=== PATIENT | male | born 1960 | race Caucasian/White ===

== ENCOUNTER 2019-03-18 15:47 | Inpatient (IN) | payer MEDICARE, MEDICAID ==
[~2019-03-18] VITALS: Ht 177.8 cm; Wt 103.6 kg
--- NOTE | ~2019-03-18 | CON ---
[address] [address] CONSULTATION Name: MARY GREEN Room: [address] IN M.R.#: [id number] Admission: 03/18/19 Attend Phys: Escobar Tucker MD Discharge: Date of : 60 Report #: [id number] THIS REPORT FOR: //name// CC: [facility] physician/PCP Escobar Tucker DATE OF SERVICE: 03/20/2019 LOCATION: [facility]. CHIEF COMPLAINT: Diabetic foot ulceration of the dorsal aspect of the left foot of unknown etiology. HISTORY OF PRESENT ILLNESS: The patient developed a wound several weeks ago that is progressively worsened with increasing inflammation, edema, drainage and pain. He thinks it may be a spider bite, as he has seen spiders near him in his home. He has type 2 diabetes mellitus with some degree of peripheral neuropathy and arterial insufficiency. He is on parenteral vancomycin and ceftriaxone with good tolerance. Blood cultures are negative x 2, foot culture growing gram-positive cocci. His MRI was negative for abscess or osteomyelitis, as were his foot x-rays. His arterial Doppler showed a right mid femoral stenosis of roughly 75% and a left mid femoral stenosis of roughly 50%. Drug screen was positive for methamphetamine and marijuana. He relates decreased pain to the foot, he has remained afebrile with good appetite. LABORATORY DATA: WBC 8.6, hemoglobin is 15.5, hematocrit is 46.6, platelets 156,000. BUN 20, creatinine 0.8, glucose 277, albumin 3.2. PHYSICAL EXAMINATION: There is a well-circumscribed annular ulceration of the left dorsal foot that measures 3.5 x 2.0 x 0.5 cm. The wound base has yellow fibrotic tissue and slough with no granulation. There is no exposed bone or tendon. There is no undermining or tunneling. There is no fluctuance or crepitation. There is localized periwound inflammation with cellulitis extending to the ankle and lower leg, which has been resolving since hospital admission. He has dopplerable dorsalis pedis and posterior tibial pulses bilaterally. No other open lesions noted. IMPRESSION: Diabetic foot ulceration to left dorsal foot with deep tissue infection. PLAN: Excisional ulcer debridement was performed with scissors and forceps to excise fibronecrotic subcutaneous tissue. Scant bleeding was stopped with pressure. The wound was cleansed and packed with Aquacel Ag and dressed with a Mepilex bordered foam. The patient does not require surgical debridement in the operating room at this point. He can be managed with topical wound care, offloading, antibiotics and glycemic control. [place]ascular [place] [address] CONSULTATION Name: MARY GREEN Room: [address] [place] .R.#: [id number] Admission: 03/18/19 Attend Phys: Escobar Tucker MD Discharge: Date of : 60 Report #: [id number] with him regarding his stenosis. I will follow up with him next week at [facility]. By: [id number] Swanson DPM /tomas
[2019-03-18 15:52] VITALS: BP 91/75
[2019-03-18 16:23] LABS: ABSOLUTE BASOPHILS 0.1 thou/uL (0.0-0.2); ABSOLUTE EOSINOPHILS 0.5 thou/uL (0.0-0.7); ABSOLUTE MONOCYTES 0.6 thou/uL (0.0-1.2); BASOPHILS 0.8 %; EOSINOPHILS 5.2 %; HEMATOCRIT 52.2 % (42.0-52.0); HEMOGLOBIN 17.6 gm/dL (14.0-18.0); LYMPHOCYTES 29.6 %; MCH 29.3 pg (26.0-34.0); MCHC 33.8 g/dL (28.0-37.0); MCV 86.9 fL (80.0-100.0); MONOCYTES 6.2 %; MPV 9.4 fl. (7.2-11.1); NUCLEATED RBCS 0 /100WBC; PLATELET COUNT* 191 thou/uL (150-400); POLYS 58.2 %; RBC 6.01 mil/uL (4.50-6.00); RDW-CV 14.3 % (10.5-14.5); WBC 10.3 thou/uL (4.0-11.0)
[2019-03-18 16:52] LABS: CALCIUM 8.9 mg/dL (8.5-10.1); CREATININE 0.7 mg/dL (0.6-1.3)
[2019-03-18 16:57] LABS: ALBUMIN 3.2 g/dL (3.4-5.0); TOTAL BILIRUBIN 0.6 mg/dL (<0.1-1.0)
[2019-03-18 17:11] LABS: POTASSIUM 3.5 mmol/L (3.5-5.1)
[2019-03-18] MEDS ORDERED: NORVASC5 MG PO (18:38)
[2019-03-18] MEDS ORDERED: LYRICA 50 MG50 MG PO (18:38)
[2019-03-18] MEDS ORDERED: OMEPRAZOLE20 M2 PO (18:38)
[2019-03-18] MEDS ORDERED: METFORMIN HCL500 MG PO (18:38)
[2019-03-18] MEDS ORDERED: BENADRYL25 MG PO (18:39)
[2019-03-18] MEDS ORDERED: ZANAFLEX4 MG PO (18:40)
[2019-03-18] MEDS ORDERED: VALSARTAN-HCTZ1 EAC1 PO (18:40)
[2019-03-18] MEDS ORDERED: IMDUR 60 MG TAB60 M1 PO (18:41)
[2019-03-18] MEDS ORDERED: COREG25 MG PO (18:42)
[2019-03-18] MEDS ORDERED: MONTELUKAST SOD10 MG PO (18:42)
[2019-03-18] MEDS ORDERED: LOVASTATIN 20 M20 MG PO (18:42)
[2019-03-18] MEDS ORDERED: COMBIVENT INH (18:43)
[2019-03-18 20:10] VITALS: BP 178/109
[2019-03-18 20:28] VITALS: BP 158/90
[2019-03-18 20:33] LABS: URINE BILIRUBIN NEGATIVE (Negative); URINE BLOOD TRACE (Negative); URINE CLARITY CLEAR; URINE COLOR YELLOW; URINE GLUCOSE-RANDOM 3+ (Negative); URINE KETONES NEGATIVE (Negative); URINE LEUKOCYTES-REFLEX NEGATIVE (Negative); URINE NITRITE-REFLEX NEGATIVE (Negative); URINE PROTEIN 3+ (Negative); URINE SPECIFIC GRAVITY 1.025 (1.005-1.030); URINE UROBILINOGEN 0.2 E.U./dl (0.2-1.0)
[2019-03-18 20:43] LABS: AMP/METHAMP POSITIVE (Negative); BARBITURATES Negative (Negative); BENZODIAZEPINES Negative (Negative); COCAINE Negative (Negative); METHADONE Negative (Negative); OPIATES Negative (Negative); PCP Negative (Negative); THC POSITIVE (Negative)
[2019-03-18 20:46] LABS: HYALINE CASTS 0-3 Few /LPF (None Seen); MUCUS None Seen strn/LPF (None Seen); SQUAMOUS NONE SEEN /LPF (0-3)
[2019-03-18 20:47] LABS: BACTERIA-REFLEX None Seen /HPF (None Seen); CRYSTALS None Seen /LPF (None Seen); URINE RBC 0-2 Rare /HPF (0-2); URINE WBC-REFLEX None Seen /HPF (0-5)
[2019-03-19] VITALS: BP 168/89
[2019-03-19 02:11] LABS: GLYCOHEMOGLOBIN (HGB A1C) 9.2 % (4.8-5.6)
[2019-03-19 04:00] VITALS: BP 174/104
--- NOTE | 2019-03-19 05:44 | NUR ---
PATIENT ARRIVED ON THE FLOOR FROM THE ER ABOUT 2019. PATIENT ADMISSION HISTORY AND ASSESSMENT WAS COMPLETED CHARTED. IV VANC AND FLUIDS WERE GIVEN ORDERED. PICTURES WERE TAKEN OF LEFT FOOT WOUND AND CELLULITIS TO LEFT LEG AND PLACED ON CHART. DRESSING WAS PLACED ON LEFT FOOT WOUND. PATIENT WAS GIVEN PAIN MEDICINE TWICE THIS SHIFT AND SOME BENADRYL ONCE FOR ANXIETY. WILL CONTINUE TO MONITOR.
--- NOTE | 2019-03-19 15:03 | NUR ---
WOUND NURSE: PATIENT SEEN TO ADDRESS WOUND ON DORSAL ASPECT OF LEFT FOOT MEASURING 2.7 X 1.3 X 0.7 CM. PRESENT WITH YELLOW AND BLACK MOIST NECROTIC TISSUE COVERING THE WOUND BED. PERIWOUD AREA WITH LOCALIZED REDNESS, NO WARMTH. TENDER TO TOUCH. NO ODOR. DIFFICULT TO AUSCULATE DOPPLER FROM LEFT DORSALIS PEDIS, PT WAS BIPHASIC HOWEVER. THE DISTAL FOOT IS COLD TO TOUCH WITH SIGNIFICANT RUBOR. PATIENT REPORTING WOUND IS 2 MONTHS OLD AND STARTED 3 SMALL BLISTERS WITH PAIN AND SWELLING AND HAVE GRADUALLY GOTTEN WORSE. PATIENT REPORTS THAT HE IS CONCERNED THAT THE WOUND IS A RESULT OF A SPIDER BITE HE HAD BROWN SPIDERS IN HIS HOME. THERE CURRENTLY 1 TO 2 PLUS EDEMA IN THE FOOT. CLEANSED THE WOUND WITH WOUND CLEANSER AND GAUZE, APPLIED AQUACEL AG UNDER ABD, THEN WRAPPED WITH KERLEX ROLL GAUZE AND SECURED WITH TAPE. COVERED WITH A LIGHT KYRA WRAP. PATIENT INSTRUCTED TO STOP SMOKING AND KEEP BLOOD SUGARS UNDER CONTROL, NAMELY <200. ALSO INSRUCTED ON IMPORTANCE OF VITAMIN C, ZINC, AND PROTEIN IN WOUND HEALING. PATIENT AGREES AND IS INTERESTED IN FOLLOWING UP IN THE [facility] UPON DISCHARGE FROM THE HOSPITAL.
[2019-03-19 15:49] VITALS: BP 129/73
--- NOTE | 2019-03-19 16:31 | NUR ---
SW met with pt to complete initial assessment, introduce self, and SW role. Pt was getting ready to leave to unit for imaging presumably. [place], independent with ADLs and mobility. Pt has been for 7 yrs after his from pancreatic cancer. Pt does not anticipate any dc needs at this time; SW/CM to continue to follow to assist with safe dc planning if dc needs arise.
--- NOTE | 2019-03-19 18:38 | NUR ---
PATIENT PLEASANT AND COOPERATIVE W/ ASSESS AND CARES THRU SHIFT. PATIENT EDUCATED ON SMOKING CESSATION AND DIABETIC CONTROL/CARES. PATIENT STATES HE WAS NOT AWARE THAT SMOKING WOULD CAUSE VASCULAR ISSUES AND LUNG PROBLEMS, SUCH DIFFICULTY BREATHING AND DIMINISHING LUNG CAPACITY. O2 4L/NC THIS AM, WEANED TO RA THRU SHIFT, CURRENT SATS 92%. ALERT AND ORIENTED. WOUND CARE IN, SEE NOTES. VASCULAR AND INFECTIOUS DISEASE IN TO CONSULT. IV SITE NOTED WNL. PATIENT INDEP IN RM. SEE MAR FOR PAIN CONTROL. ~JOHNNYRN
[2019-03-19 22:01] VITALS: BP 87/45
--- NOTE | 2019-03-20 05:55 | NUR ---
PATIENT SLEPT THROUGH SHIFT. DURING ROUNDING DID ASK FOR PAIN MEDS TWICE. PAIN LOCATED BELOW KNEE TO FOOT ON LEFT. FENTANYL GIVEN AT 2200 AND HYDROCODONE AT 0530. ABX ADMINISTERED DURING SHIFT. NO NEW REPORTS OF WORSENING PAIN. WOUND NURSE CHANGED DRESSING DURING DAY SHIFT.
--- NOTE | 2019-03-20 07:46 | CON ---
[address] [address] CONSULTATION Name: MARY GREEN Room: [address] IN .#: [id number] Admission: 03/18/19 Attend Phys: Escobar Tucker MD Discharge: Date of : 60 Report #: [id number] THIS REPORT FOR: //name// CC: [facility] physician/PCP Escobar Tucker DATE OF SERVICE: 03/19/2019 INFECTIOUS DISEASE CONSULTATION ATTENDING PHYSICIAN: Escobar Tucker MD REASON FOR EVALUATION: Dorsal left foot necrotic ulcer complicated by skin and soft tissue infection with cellulitis. HISTORY OF PRESENT ILLNESS: Chart reviewed, patient examined. This is a 59-year-old with known diabetes mellitus type 2 complicated by vasculopathy including known coronary artery disease, presented with a necrotic type dorsal ulcer. He dates it roughly 8 weeks. He woke up, saw 3 sites. He questioned whether he was bitten by a spider. He did see spiders in the area including brown recluse and perhaps freeman spiders. Subsequently, he developed what he described as whiteheads and broke down in ulceration. He has a fairly marked degree of peripheral neuropathy. He has had fevers, chills, and sweats. He has had anorexia with poor p.o. intake. He notes he has had significant weight loss as well. Cultures are in progress. Plain film of the foot showed no evidence of periosteal reaction or bone destruction. He does have a positive drug screen for methamphetamine as well as marijuana. Urinalysis showed 3+ protein, 3+ glucose. Blood cultures are sterile thus far. Empirically started on combination antimicrobials including ceftriaxone and vancomycin. He is generally lucid, moderate distress. ALLERGIES: PENICILLIN. CURRENT MEDICATIONS: Include atorvastatin, tizanidine losartan, montelukast, isosorbide mononitrate, amlodipine, pregabalin, ceftriaxone, carvedilol, metformin, ipratropium, albuterol inhaler, pantoprazole, vancomycin, p.r.n. analgesics, and antiemetics. PAST MEDICAL HISTORY: Includes diabetes mellitus type 2 complicated by peripheral neuropathy, has known vasculopathy, coronary artery disease, bypass grafting in 2015. He has longstanding chronic obstructive pulmonary disease, at one point, he was oxygen requiring, although not since 2016, history of pancreatitis, and back surgeries. SOCIAL HISTORY: Smokes half pack a day for 40+ years. Does use marijuana, amphetamine[place] [address] CONSULTATION Name: MARY GREEN Room: [address]#: [id number] Admission: 03/18/19 Attend Phys: Escobar Tucker MD Discharge: Date of : 60 Report #: [id number] FAMILY HISTORY: Noncontributory. REVIEW OF SYSTEMS: Otherwise, unremarkable. Denies any abdominal-related pain, nausea. Does have need for supplemental oxygen while here feels short of breath without significant cough. PHYSICAL EXAMINATION: GENERAL: He appears chronically ill, undernourished. He is pleasant. He is cooperative, in moderate distress. VITAL SIGNS: Temperature 97.4, pulse 103, respirations 17, blood pressure 188/112. SKIN: Warm and dry. HEENT: Normocephalic. Extraocular muscles are intact. NECK: Supple. LUNGS: Diminished overall, scattered crackles. HEART: Regular, tachycardic. May have a soft systolic murmur. ABDOMEN: Soft, obese, mildly distended, nontender. EXTREMITIES: He had his foot redressed. The dorsal aspect of foot has a necrotic ulcer. Per wound care nurse, there is [id number] degree of surface inflammation. The distal limbs are cold to touch. There is absence of dorsalis pedis pulse. GENITOURINARY: Deferred. RECTAL: Deferred. LABORATORY DATA: MRI of the foot suggests no findings consistent with abscess or osteomyelitis. Surveillance for MRSA via PCR was negative. ABIs were marginal involving dorsalis pedis adequate for the posterior tibial. Blood cultures sterile thus far. Initial lactic acid 1.4, repeat was 1.0. Hemoglobin A1c 9.2. Urinalysis as described above, 3+ protein, 3+ glucose, trace blood, 0-2 white cells. Electrolytes: Sodium 140, potassium 3.5, chloride 103, bicarbonate is 27, anion gap of 10, BUN and creatinine 19 and 0.7. LFTs are unremarkable. Albumin of 3.2, total protein of 7.0. Estimated GFR of 115. CBC: White count of 10.3, H and H 17.6 and 52.2, platelets of 191. ASSESSMENT: Right dorsal chronic wound based on systemic illness likelihood of complicating infection. We will continue empiric therapy. Staph and strep would be the most likely, although given his overall status, can exclude gram negatives as well. We will await culture results, go ahead and ask Vascular Surgery to evaluate for possible arterial insufficiency. Continue wound care and light compression, elevation. We will monitor expectantly. He does describe significant weight loss, which has not been evaluated previously and [address] [address] CONSULTATION Name: MARY GREEN Room: [address]#: [id number] Admission: 03/18/19 Attend Phys: Escobar Tucker MD Discharge: Date of : 60 Report #: [id number] could be indicative of some occult process. We may do additional diagnostic studies broader than limited to the lower extremities. <ELECTRONICALLY SIGNED> By: Nuno Valenzuela MD 03/20/19 0746 [id number] Valenzuela MD /nt
[2019-03-20 08:00] VITALS: BP 123/71
[2019-03-20 10:01] LABS: HEMATOCRIT 46.6 % (42.0-52.0); MCH 29.4 pg (26.0-34.0); MCHC 33.2 g/dL (28.0-37.0); MCV 88.7 fL (80.0-100.0); MPV 9.6 fl. (7.2-11.1); RBC 5.26 mil/uL (4.50-6.00); RDW-CV 14.9 % (10.5-14.5); WBC 8.6 thou/uL (4.0-11.0)
[2019-03-20 10:02] LABS: HEMOGLOBIN 15.5 gm/dL (14.0-18.0)
[2019-03-20 10:09] LABS: CALCIUM 8.7 mg/dL (8.5-10.1); CREATININE 0.8 mg/dL (0.6-1.3); MAGNESIUM 1.9 mg/dL (1.8-2.4); POTASSIUM 4.1 mmol/L (3.5-5.1)
[2019-03-20 16:38] VITALS: BP 138/63
--- NOTE | 2019-03-20 16:40 | NUR ---
PT SITTING IN CHAIR MOST OF SHIFT. UP TO BR WITH STEADY GAIT.WOUND CARE TO LEFT FOOT PERFORMED. PAIN WELL CONTROLLED WITH PO MEDS. IV ABX GIVEN ORDERED
[2019-03-20 21:09] VITALS: BP 123/68
--- NOTE | 2019-03-21 05:34 | NUR ---
REPORTED PAIN ONLY ONCE IN LLE AT A 03/11. GAVE 2 NORCO AT 0430. PATIENT TOOK SHOWER DURING SHIFT AND I REWRAPPED LEFT FOOT WITH GAUZE. ABX ADMINISTERED DURING SHIFT. PATIENT READY TO GO HOME TODAY.
[2019-03-21 08:00] VITALS: BP 144/95
--- NOTE | 2019-03-21 10:00 | NUR ---
PT REPORTS HE WOULD LIKE TO LEAVE. DISCUSSED AWAITING ORDERS FROM PHYSICIAN. PT STATES IF HE IS NOT DC HE WILL LEAVE AMA. DISCUSSED WITH PT THE IMPORTANCE OF TAKING ANTIBIOTICS AND HIS NEED FOR RX. PT VERBALIZES UNDERSTANDING
[2019-03-21 12:56] VITALS: BP 144/95
--- NOTE | 2019-03-21 13:07 | NUR ---
PT STATES HE DOES NOT WANT TO STAY IN THE HOSPITAL AND WANTS TO LEAVE AMA. AMA FORM SIGNED. PT ENCOURAGED TO SEEK MEDICAL ATTENTION
== END 2019-03-21 13:00 | disposition left against medical advice (07) | DRG 264 ==
LOC: M.ERS 15:47 → M.TBA-ER 17:08 → M.ORTHSURG 17:08
PROVIDERS: Physician Assistant; ADMIT Internal Medicine
PROC: 0JBR0ZZ Excision of Left Foot Subcutaneous Tissue and Fascia, Open Approach (ICD-10-PCS; principal; 2019-03-20)
DX: E11.51 Type 2 diabetes mellitus with diabetic peripheral angiopathy without gangrene (principal); L03.116 Cellulitis of left lower limb; E44.1 Mild protein-calorie malnutrition; E11.621 Type 2 diabetes mellitus with foot ulcer; J44.9 Chronic obstructive pulmonary disease, unspecified; F12.90 Cannabis use, unspecified, uncomplicated; E11.42 Type 2 diabetes mellitus with diabetic polyneuropathy; I25.10 Atherosclerotic heart disease of native coronary artery without angina pectoris; F17.210 Nicotine dependence, cigarettes, uncomplicated; G89.29 Other chronic pain; M54.9 Dorsalgia, unspecified; Z53.21 Procedure and treatment not carried out due to patient leaving prior to being seen by health care provider; I70.202 Unspecified atherosclerosis of native arteries of extremities, left leg; F19.10 Other psychoactive substance abuse, uncomplicated; M77.9 Enthesopathy, unspecified; Z95.1 Presence of aortocoronary bypass graft; Z71.6 Tobacco abuse counseling; Z89.022 Acquired absence of left finger(s); I25.2 Old myocardial infarction; Z88.0 Allergy status to penicillin; Z68.32 Body mass index [BMI] 32.0-32.9, adult